=== PATIENT | male | born 1985 | race Caucasian/White ===

== ENCOUNTER 2018-01-25 10:17 | Emergency (ER) | payer OTHER ==
[~2018-01-25] VITALS: Ht 177.8 cm; Wt 96.6 kg
[2018-01-25 10:26] VITALS: Ht 177.8 cm; Wt 96.6 kg
[2018-01-25 12:13] VITALS: BP 153/78
== END 2018-01-25 12:13 | disposition home or self-care (01) ==
LOC: ED 10:17
DX: H57.89 Other specified disorders of eye and adnexa (principal)
CPT/HCPCS: J7030; V2632